=== PATIENT | female | born 1985 | race Caucasian/White ===

== ENCOUNTER → 2019-06-13 10:03 | Day surgery (SDC) | payer BC, OTHER ==
[~2019-06-13 10:03] MED LIST: Buffered Lidocaine 1% SYRIN* 1 ML/SYRINGE INTRADERM ONE; Famotidine IV* 10 MG/ML 2 ML (20 mg) IV ONE; Famotidine IV* 10 MG/ML 2 ML (20 mg) ONE; Lactated Ringers 1000 ML Bag* 1,000 ML IV SCH
[2019-06-13 11:17] LABS: Rapid Strep Molecular Negative (Negative)
[2019-06-13 11:22] LABS: Influenza A Molecular Negative (Negative); Influenza B Molecular Negative (Negative)
[2019-06-13 11:24] VITALS: BP 164/121
== END | disposition home or self-care (01) ==
LOC: OR 10:03
PROVIDERS: ATTEND Otolaryngology
DX: J35.01 Chronic tonsillitis (principal); Z53.09 Procedure and treatment not carried out because of other contraindication; J02.9 Acute pharyngitis, unspecified; R59.9 Enlarged lymph nodes, unspecified; Z87.891 Personal history of nicotine dependence
CPT/HCPCS: 81025; 87651